=== PATIENT | female | born 1930 | race Caucasian/White ===

== ENCOUNTER 2017-07-31 11:26 | Day surgery (SDC) | payer MEDICARE, BC ==
[~2017-07-31] VITALS: Ht 157.5 cm; Wt 55.4 kg
[~2017-07-31 11:26] MED LIST: FOSA35TA2 PO; LASI20TA PO; LEVO.075 PO; LUNE1TAB5 PO; REST0.05 OU
[2017-07-31] MEDS ORDERED: PROPOFOL 200 MG/20 ML AMP IV ONE (12:00)
[2017-07-31 12:10] VITALS: BP 156/75; PULSE 72; RESP 18; TEMP 97.9; O2SAT 100
[2017-07-31] MEDS ORDERED: LEVO.1 PO (12:22)
[2017-07-31] MEDS ORDERED: VITAMIN D P-ARTICULR (12:22)
[2017-07-31] MEDS ORDERED: PRAD150C PO (12:22)
[2017-07-31] MEDS ORDERED: OMEP40CA2 PO (12:22)
[2017-07-31] MEDS ORDERED: TEMA15CA PO (12:22)
[2017-07-31] MEDS ORDERED: ATEN25TA PO (12:22)
[2017-07-31] MEDS ORDERED: FURO1TAB62 PO (12:22)
[2017-07-31] MEDS ORDERED: REST0.05 EACH EYE (12:22)
[2017-07-31] MEDS ORDERED: CALCTAB98 PO (12:22)
[2017-07-31] MEDS ORDERED: LORA0.5T PO (12:22)
[2017-07-31] MEDS ORDERED: LORazepam 1 MG TAB SL SCH (12:30)
[2017-07-31] MEDS ORDERED: VANCOMYCIN 1000 MG/NS 250 ML IV SCH ×2 (12:30)
[2017-07-31] MEDS ORDERED: METOPROLOL TARTRATE 25 MG TAB PO PRN (12:30)
[2017-07-31] MEDS ORDERED: NS 1000 ML IV SCH (12:30)
[2017-07-31] MEDS ORDERED: CHLORHEXIDINE GLUCONATE 2 % 1 PACK (2 CLOTHS) TOPICAL PRN (12:30)
[2017-07-31] MEDS ORDERED: LACTATED RINGER'S 1000 ML IV PRN (12:30)
[2017-07-31] MEDS ORDERED: MUPIROCIN 2% OINT 1 APPLIC/GM SYR NASAL SCH (12:30)
[2017-07-31] MEDS ORDERED: POVIDONE IODINE 5% (ANTISEPSIS KIT) 4 APPLICATIONS EACH NARE PRN (12:30)
[2017-07-31] MEDS ORDERED: SODIUM CHLORID 0.9% 500 ML IV PRN (12:30)
[2017-07-31 12:34] LABS: AUTOMATED NEUTROPHIL # 1.1 TH/MM3 (1.8-7.7); BASOPHIL % 0.5 % (0.0-2.0); EOSINOPHIL % 0.2 % (0.0-4.0); HEMATOCRIT 39.9 % (35.0-46.0); HEMOGLOBIN 13.3 GM/DL (11.6-15.3); LYMPH % 39.7 % (9.0-44.0); LYMPHOCYTE # 1.2 TH/MM3 (1.0-4.8); MEAN CELL VOLUME 91.1 FL (80.0-100.0); MEAN CORPUSCULAR HEMOGLOBIN 30.4 PG (27.0-34.0); MEAN CORPUSCULAR HGB CONC 33.4 % (32.0-36.0); MEAN PLATELET VOLUME 10.5 FL (7.0-11.0); MONO % 21.6 % (0.0-8.0); MONOCYTE # 0.6 TH/MM3 (0-0.9); PLATELET COUNT 100 TH/MM3 (150-450); RED BLOOD COUNT 4.38 MIL/MM3 (4.00-5.30); RED CELL DISTRIBUTION WIDTH 14.1 % (11.6-17.2)
[2017-07-31 12:43] LABS: INTERNATIONAL NORMALIZED RATIO 1.1 RATIO; PROTHROMBIN TIME - PATIENT 11.4 SEC (9.8-11.6)
[2017-07-31 12:58] LABS: BICARBONATE 26.1 MEQ/L (21.0-32.0); CALCIUM 9.3 MG/DL (8.5-10.1); CREATININE 0.7 MG/DL (0.50-1.00)
[2017-07-31] MEDS ORDERED: LIDOCAINE HCL 2% 50 ML VIAL ONE (13:37)
[2017-07-31] MEDS ORDERED: VANCOMYCIN 500 MG VIAL ONE (13:37)
[2017-07-31] MEDS ORDERED: MIDAZOLAM HCL 2 MG/2 ML VIAL ONE (14:18)
--- NOTE | 2017-07-31 15:03 | CATHPROC ---
[employer] HIS Report Study Information Study Number Admission Scheduled Start Study Start [id number] Jul 31 2017 11:26AM 07/31/2017 Jul 31 2017 12:52PM [place] Service Cardiac Pacer/ICD Admit Source Facility Department Other [facility] - Senior Business Manager Physician and Clinical Staff Initial MD Thurman, Nicola Forensic Nurse Olga Moraes RN Other Anesthesia, CINETECHNICIAN Recorder Lulu Sheldon,MATERIAL HANDLER TECH2 Scrub Lana Zeng RCIS Equipment Time Section Leader Description Size Mfg Part Number Used/Scraped [id number] 13:19 MEDLINE [employer] SUTURE, STRIP PLUS 1/2" * Used *[id number] 13:19 MEDLINE PACER ADHESIVE, MASTISOL 2/3CC 2/3CC 0523-48 Used 13:19 MEDLINE PACER MAGANA, LIMB * 2530 *[id number] Used [id number] 13:19 MEDLINE PACER PACK, PACER CUSTOM * Used *[id number] 13:19 MEDLINE PACER PEN, SKIN DUAL W/ RULER * Used *[id number] PROBE COVER, STERILE [id number] 13:19 [employer] MEDICAL * Used ULTRASOUND W/ GEL *[id number] 13:54 Needle Sponge Count 1 1 Used 13:54 Needle Sponge Count 3 33 Used 13:54 Needle Sponge Count 30 1 Used [id number] SUTURE, 3-0 MONOCRYL [SH] (Y316H) SUTURE, 3-0 MONOCRYL [SH] (Y316H) SUTURE, 4-0 MONOCRYL [PS2] (Y496G) SUTURE, 4-0 MONOCRYL [PS2] (Y496G) [id number] 13:19 [place] [employer],WARM AIR CCL * Used *[id number] [facility] PAD, ELECTROSURGICAL 13:19 * [id number] *[id number] Used SURGICAL GROUNDING ORANGE PACEMAKERYAHAIRA DR MRI 14:01 VITATRON MEDTRON[employer] OEA-DDDR [id number] Used SURESCAN [id number] 14:01 VITATRON [employer] PLASMABLADE, PEAD 3.0S * Used *[id number] 13:19 [employer] JONATHON. / * Used *[id number] Equipment Model, Serial, Lot Number and Expiration Data Description Model Number Serial Number Lot Number Expiration Date PACEMAKER, YAHAIRA SHAVER MRI [id number] 10-23-2018 ROSALINDNMCHENTE History: Current Medications Medication Dosage/Unit Route Frequency Last Date/Time Taken PRADAXA LASIX Synthroid Beta Mason VITAMIN D Prilosec History: Allergies Allergy Reaction penicillin G History: Risk Factors Hypertension Dyslipidemia Yes Yes Prior Valve Prior PCI Prior CABG Surgery No No No History: Arrhythmias Selection Items Atrial fibrillation History: Other Disease Selection Items Gerd Labs Hgb (g/dl) Hct (%) WBC (l/cumm) Platelets (thousands) 11.60-17.00 35.00-51.00 4.00-11.00 150.00-450.00 13.3 39.9 3 100 Glucose (mg/dl) BUN (mg/dl) Creatinine (mg/dl) BUN:Creatinine (1:x) 74.00-106.00 7.00-18.00 0.50-1.30 10.00-20.00 95 5 0.7 7.1 Na (meq/l) K (meq/l) Cl (meq/l) CO2 (mmol/L) Ca (mg/dl) 136.00-145.00 3.50-5.10 98.00-107.00 21.00-32.00 8.50-10.10 140 4.7 105 26.1 9.3 PT (sec) PTT (sec) INR (PTT:PT) 9.80-11.60 24.30-30.10 0.90-1.10 11.4 25.4 1.1 CPK-MB (ng/ML) 0.50-3.60 Not Drawn Medication Medication Total Dose (Bolus/Oral) Medication Total Dosage/Unit 2% XYLOCAINE 50 mL Medications (Bolus/Oral) Medication Time Given Dosage/Unit Administered By Reason 2% XYLOCAINE 07/31/2017 1:55:41 PM 50 mL Patient arrived on 50 mL 2% XYLOCAINE via Subcutaneous. Medication (Drip) Medication Time Given Dosage/Unit Concentration/Unit Diluent (ml) Solutio n IV Solutions 07/31/2017 1:20:41 PM 0 mL (IV) 500 NaCl .9 Patient arrived on IV Solutions in Left Forearm via Peripheral IV. Pump/Drip Flow = 20 ml/hr using Na Cl .9. IV Solutions 07/31/2017 1:21:58 PM 0 mL (IV) 500 NaCl .9 Patient arrived on IV Solutions in Right Wrist via Peripheral IV. Pump/Drip Flow = 20 ml/hr using NaC l .9. VANCOMYCIN DRIP 07/31/2017 1:22:46 PM 1 g 1 g VANCOMYCIN DRIP given in lab by Olga Moraes, MARILIN in Right Wrist via Peripheral IV. Ordered by Nicola Thurman. Initial Case Assessment Cardiovascular HR Rhythm NIBP Chest Pain 66 paced 171/89 0 Neurological State Oriented to time-place- Alert Moves all extremities person Respiration - General Respiration Rate SpO2 (%) (B/min) 10 100 Final Case Assessment Cardiovascular HR Rhythm NIBP 62 paced 108/58 Neurological State Oriented to time-place- Alert Moves all extremities person Respiration - General Respiration Rate SpO2 (%) (B/min) 10 98 Chronological Log Time Study Chronological Log 13:14:48 Patient arrived via Bed. 13:14:53 Patient Name, D.O.B, / Armband Verified By R.N. 13:14:58 2% CHLORHEXIDINE GLUCONATE WASH AND NASAL SWIPE DONE PRIOR TO PROCEDURE. 13:19:01 Consent signed by the physician and the patient and verified by the Senior Business Manager staff. 13:19:03 Pre-op and post- op instructions given; patient acknowledges understanding of instruction s. 13:19:04 Verbal Stimulation=2 Physical Stimulation=2 Airway=2 Respiration=2 TOTAL=8. (0=absent, 1= limited, 2=present) 13:19:07 Presedation assessment performed by Senior Business Manager RN. 13:19:11 Patient has been NPO for More than 6Hrs. 13:19:13 Skin Breakdown-none per patient 13:19:14 Disposable Defibrillator Pads Placed On Patient. 13:19:30 Kennedy Prominences Protected 13:19:36 Bovie ground pad applied to: right upper thigh 13:20:40 A # 20 IV was noted in the Forearm (left). Grade = patent 13:20:41 Patient arrived on IV Solutions in Left Forearm via Peripheral IV. Pump/Drip Flow = 20 ml/h r using NaCl .9. 13:20:45 History and physical on the chart or being dictated. 13:20:48 Table restraints applied according to hospital policy 13:21:38 A # 20 IV was noted in the Wrist (right). Grade = patent 13:21:58 Patient arrived on IV Solutions in Right Wrist via Peripheral IV. Pump/Drip Flow = 20 ml/hr using NaCl .9. 1 g VANCOMYCIN DRIP given in lab by Olga Moraes RN in Right Wrist via Peripheral IV. Orde red by Cuca, 13:22:46 Humayun. 13:30:38 Anesthesia at bedside. CHRISTINE Trujillo Assumes care of patient. 13:40:39 Left Upper Chest Prepped Times Two and draped in sterile fashion after a 3 min dry time. First Sponge And Instrument Count Done by Lana Zeng RCIS. 13:45:48 Hypo's: 1, Sponges: 30, Bovie/scratch: 3 Sutures: 5, Blades: 3, Instruments: 26, Syveck Patches: 0 13:47:13 MD arrived. Assessment: Initial Case, HR=66 BPM, Rhythm=paced, TNRO=569/89 mmhg, Chest Pain=0 13:48:55 Neurological: State=Alert, Ox3, [place] Respiration: Resp=10 B/min, UtV4=684 % 13:49:35 HR=67 bpm, PVJR=559/89 mmhg, SpO2=99.0 %, Resp=9 B/min Time Out. Correct patient, procedure, procedure equipment, site and side verified with physicia n present. Time 13:55:18 concurred by MD, individual staff and CINETECHNICIAN. Time Out #2 - Consents verified, patient in correct position, all results are labled and displa yed, safety precautions 13:55:23 taken, antibiotics administered. Time out concurred by MD, individual staff and CINETECHNICIAN in procedu re 13:55:39 Case Start 13:55:41 Patient arrived on 50 mL 2% XYLOCAINE via Subcutaneous. 13:58:22 Surgical Incision Made. 13:58:26 A pocket was opened at the L Upper Chest. 14:09:06 The pocket was debrided. 14:10:07 A device was explanted. 14:11:11 Pocket flushed with antibiotic solution 14:11:39 A PACEMAKER, YAHAIRA DUBOSE OEA-DDDR was connected and placed in the pocket. 14:13:15 The device was sutured to the fascia. 14:15:42 Closing the pocket. Second Sponge And Instrument Count Done by Lana Zeng RCIS. 14:16:32 Hypo's: 1, Sponges: 30, Bovie/scratch: 3 Sutures: ~SUTURE~, Blades: 3, Instruments: 26, Syveck Patches: 0 14:33:57 HR=88 bpm, QILJ=367/58 mmhg, QhP9=241 %, Resp=10 B/min 14:39:50 The pocket was closed. 14:39:58 Implant Procedure was performed. 14:40:05 A PPM Implant . (Dual) 14:40:57 Dermabond applied to site. 14:42:22 Case End 14:50:52 Steri-strips and a sterile dressing applied to site. 14:51:50 No case complications noted. 14:52:51 Cine recording checked. 14:53:54 Implantable Device card placed in patient's chart. Assessment: Final Case, HR=62 BPM, Rhythm=paced, FRQR=106/58 mmhg 14:55:28 Neurological: State=Alert, Ox3, [place] Respiration: Resp=10 B/min, SpO2=98 % 14:56:00 Patient moved to stretcher 14:59:32 Patient transported to DOCU. 14:59:53 Bedside Report will be given. End Study - Contrast Media Used In Study Contrast Total Opened (mL) Total Used (mL) Total Wasted (mL) Unspecified 0 0 0 End Study - Maximum Contrast Load Max Contrast Load (mL) 395.8 End Study - Radiation Exposure Fluoro Time (minutes) 0.1 End Study - Patient Disposition Complications Transferred To Interventional Outcome No Telemetry Bed successful
[2017-07-31] MEDS ORDERED: DO NOT ADM ANY ANTICOAGULANT DRUGS PRN (15:30)
--- NOTE | 2017-07-31 15:35 | MP ---
cc: Nicola Thurman MD, Rizalina 0 MD DATE OF OPERATION: 07/31/2017 PROCEDURE: Dual-chamber pacemaker change out. INDICATION: Pulse generator MEHRDAD. CONSENT: Full informed consent was obtained prior to the procedure. Risks of , bleeding, perforation, aspiration, pneumothorax, foreseen and unforeseen complications were reviewed. Risks of infection reviewed. The patient fully appeared to understand the risks. PROCEDURE: The patient was draped, prepped in the usual manner. Left infraclavicular area was carefully infiltrated with lidocaine. Using blunt, sharp and cautery dissection, the pulse generator was removed. Old scar tissue was removed from around the leads and around the pulse generator using the plasma blade from [employer]. Anesthesia was given as per the anesthesia department. The old pulse generator was removed. The old leads were connected to the new generator. The new pulse generator was placed. The pocket was closed in 3 layers. Dermabond glue was used to seal the final layer. CONCLUSION: Successful replacement of dual-chamber pacemaker for MEHRDAD. system used was Medtronic. PLAN: Will plan to discharge the patient later today. Follow up in my office in approximately 1-2 weeks. MD YAZMIN Campbell/BLAIR/chloe , 02:46 PM , 03:06 PM JOO
--- NOTE | 2017-08-02 08:21 | EKG ---
Date Performed: 07/31/2017 Time Performed: 12:21:38 PTAGE: 86 years EKG: Sinus rhythm with ventricular demand pacing Abnormal ECG Compared to PREVIOUS TRACING , pacing is new. PREVIOUS TRACIN04/14/2010 11.51 DOCTOR: Last Chawla Interpretating Date/Time 08/02/2017 08:20:32
== END 2017-07-31 18:11 | disposition home or self-care (01) ==
LOC: HDIC 11:26 → HDOC 11:26
PROVIDERS: ATTEND Internal Medicine Cardiovascular Disease
DX: Z45.010 Encounter for checking and testing of cardiac pacemaker pulse generator [battery] (principal); I49.5 Sick sinus syndrome; I35.1 Nonrheumatic aortic (valve) insufficiency; I34.0 Nonrheumatic mitral (valve) insufficiency; E03.9 Hypothyroidism, unspecified; K21.9 Gastro-esophageal reflux disease without esophagitis; I10 Essential (primary) hypertension; R06.02 Shortness of breath
CPT/HCPCS: 00400; 33228; 80048; 85025; 85610; 85730; 93005; C1785; J2250; J3010; J3370; J7030; J7050